=== PATIENT | female | born 2000 | race American Indian/Alaskan Native ===

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

== ENCOUNTER 2020-10-09 14:08 | Emergency (ER) | payer SELFPAY ==
[2020-10-09 14:32] VITALS: BP 116/82
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
[2020-10-09] MEDS ORDERED: KETOROLAC 30 MG/1 ML INJ IM ONE (15:15)
[2020-10-09] MEDS ORDERED: IBUPROFEN 800 MG TAB PO ONE (15:19)
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
== END 2020-10-09 16:20 | disposition home or self-care (01) ==
LOC: ED 14:08
DX: T20.16XA Burn of first degree of forehead and cheek, initial encounter (principal); T23.161A Burn of first degree of back of right hand, initial encounter; T20.17XA Burn of first degree of neck, initial encounter; J45.909 Unspecified asthma, uncomplicated; Z79.899 Other long term (current) drug therapy; X08.8XXA Exposure to other specified smoke, fire and flames, initial encounter; Y93.89 Activity, other specified; Y92.89 Other specified places as the place of occurrence of the external cause; Y99.8 Other external cause status
CPT/HCPCS: 99282